=== PATIENT | male | born 1985 | race African-American/Black ===

== ENCOUNTER 2017-10-14 13:06 | Emergency (ER) | payer MEDICAID ==
[~2017-10-14] VITALS: Ht 188 cm; Wt 105.0 kg
[~2017-10-14 13:06] MED LIST: BACTDS PO; CEPH-443 PO; CIPR500T4 PO; CLIN-73 PO; CYCL-319 PO; HYDR-762 PO; HYDR25SU24 PR; IBUP-1542 PO; ONDA4TAB35 PO
[2017-10-14 13:17] VITALS: Ht 188 cm; Wt 105.0 kg
--- NOTE | 2017-10-14 13:53 | ERD ---
ER Documentation Chief Complaint Chief Complaint ATTEMPTED TO GIVE BLOOD, CENTER AUSCULATED SHIVANI HOWE MD SIGN-OFF HPI This 32-year-old male presents requesting clearance to donate plasma. He has been donating plasma for 6 years. He is states that he went to a new site today and they auscultated a murmur and referred him for MD clearance. Patient denies any fevers, chest pain, shortness breath, denies any history of hypertension or current medications for any chronic medical condition. ROS All systems reviewed and are negative except as per history of present illness. Medications Home Meds Active Scripts Hydrocodone Bit-Acetaminophen* ([place]*) 10-325 Mg Tablet, 1 TAB PO Q6 Y for PAIN , #7 TAB Prov:VIC LAZARO MD 04/16/16 Hydrocortisone Acetate* (Anusol-HC*) 25 Mg/Supp.rect Supp.rect, 1 SUPP AR HS, # 12 SUPP.RECT Prov:VIC LAZARO MD 04/16/16 Cephalexin* (Keflex*) 500 Mg Capsule, 500 MG PO QID for 7 Days, CAP Prov:VIC LAZARO MD 04/16/16 Sulfamethoxazole-Trimethoprim* (Bactrim* DS) 800-160 Mg Tab, 1 TAB PO BID for 7 Days, TAB Prov:VIC LAZARO MD 04/16/16 Cyclobenzaprine Hcl* (Cyclobenzaprine Hcl*) 10 Mg Tablet, 10 MG PO TID, #15 TAB Prov:ELODIA MEDRANO 03/16/16 Ibuprofen* (Motrin*) 600 Mg Tab, 600 MG PO Q6, #30 TAB Prov:ELODIA MEDRANO 03/16/16 Ciprofloxacin Hcl* (Ciprofloxacin Hcl*) 500 Mg Tablet, 500 MG PO BID for 10 Days , TAB Prov:ANTHONY SOLIS NP 01/02/16 Cyclobenzaprine Hcl* (Cyclobenzaprine Hcl*) 10 Mg Tablet, 10 MG PO TID, #15 TAB Prov:ELODIA MEDRANO 10/14/15 Ibuprofen* (Motrin*) 600 Mg Tab, 600 MG PO Q6, #30 TAB Prov:ELODIA MEDRANO 10/14/15 Ondansetron Hcl* (Zofran* ODT) 4 mg -ODT Tab.disper, 4 MG PO Q6 Y for NAUSEA AND /OR VOMITING, #5 TAB Prov:TARA ROD 07/01/15 Cephalexin* (Keflex*) 500 Mg Capsule, 500 MG PO QID for 10 Days, CAP Prov:MARISELA GARCIA 05/26/15 Clindamycin Hcl* (Clindamycin Hcl*) 300 Mg Capsule, 300 MG PO TID for 10 Days, CAP Prov:TARAN GARCIAA 05/26/15 Allergies Allergies: Coded Allergies: No Known Allergy (Unverified , 07/01/15) PMhx/Soc History of Surgery: Yes (2008 surgery for abcess to buttocks) Anesthesia Reaction: No Hx Neurological Disorder: No Hx Respiratory Disorders: No Hx Cardiac Disorders: No Hx Psychiatric Problems: No Hx Miscellaneous Medical Probl: Yes (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 Head: Atraumatic Eyes: Normal Conjunctiva ENT: Normal External Ears, Nose and Mouth. Neck: Full range of motion..~ No meningismus. Resp: Clear to auscultation bilaterally Cardio: Regular rate and rhythm, no murmurs Abd: Soft, non tender, non distended. 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 I do not auscultate any murmurs and patient has a normal exam. He will be cleared for plasma donation as he is done for 6 years. He is advised to return for chest pain, shortness breath, fevers, new worsening symptoms otherwise with primary care doctor. Departure Diagnosis: Primary Impression: Normal cardiovascular exam Additional Impression: Normal exam Condition: Stable Patient Instructions: Normal Exam, (Child) (Adult) Additional Instructions: No murmur appreciated. Okay for donation as scheduled. Recheck otherwise for new or worsening symptoms. LENA BARROW MD Oct 14, 2017 13:52
== END 2017-10-14 14:37 | disposition home or self-care (01) ==
LOC: FTE 13:06
DX: Z13.6 Encounter for screening for cardiovascular disorders (principal); Z87.891 Personal history of nicotine dependence
CPT/HCPCS: 99282